=== PATIENT | female | born 1975 | race Caucasian/White ===

== ENCOUNTER 2016-09-07 23:39 | Observation (INO) | payer OTHER ==
[2016-09-08 00:07] VITALS: BP 118/60
[2016-09-08] MEDS ORDERED: PREN1TAB89 PO (00:09)
== END 2016-09-08 01:40 | disposition home or self-care (01) ==
LOC: 4S 23:39
PROVIDERS: ADMIT Obstetrics & Gynecology; ATTEND Obstetrics & Gynecology
DX: O62.9 Abnormality of forces of labor, unspecified (principal); O09.523 Supervision of elderly multigravida, third trimester; Z3A.38 38 weeks gestation of pregnancy
CPT/HCPCS: 59025; G0378 ×2

== ENCOUNTER 2016-09-23 15:36 | Inpatient (IN) | payer OTHER ==
[~2016-09-23] VITALS: Ht 168 cm; Wt 79.8 kg
[~2016-09-23 15:36] MED LIST: PREN1TAB89 PO
[2016-09-23] MEDS ORDERED: OXYTOCIN 30 UNITS/LACT RINGERS 500 ML IV ONE (15:45)
[2016-09-23] MEDS ORDERED: METOCLOPRAMIDE HCL 5 MG/ML 2 ML VIAL IVP PRN (15:45)
[2016-09-23] MEDS ORDERED: CITRIC ACID/SODIUM CITRATE 30 ML SOLUTION UDCUP PO PRN (15:45)
[2016-09-23] MEDS ORDERED: RINGERS SOLUTION,LACTATED 1,000 ML IV PRN (15:45)
[2016-09-23] MEDS ORDERED: LIDOCAINE HCL/PF 1% 30 ML VIAL INJ PRN (15:45)
[2016-09-23] MEDS ORDERED: METHYLERGONOVINE MALEATE 0.2 MG/ML VIAL IM PRN (15:45)
[2016-09-23 16:11] VITALS: BP 116/66
[2016-09-23] MEDS ORDERED: PREN1TAB89 PO (16:16)
[2016-09-23] MEDS: RINGERS SOLUTION,LACTATED 1,000 ML IV SCH ×2 (16:32→22:35)
[2016-09-23 16:43] LABS: BASOPHILS % (AUTO) 0.3 % (0.0-2.0); HEMATOCRIT 33.7 % (36-46); HEMOGLOBIN 11.4 g/dL (12.0-16.0); LYMPHOCYTES # (AUTO) 2.3 K/uL (1.0-4.8); LYMPHOCYTES % (AUTO) 24.2 % (22.0-44.0); MEAN CORPUSCULAR HGB CONC 33.7 G/dL (31.0-37.0); MEAN CORPUSCULAR VOLUME 89 fL (80-100); MONOCYTES % (AUTO) 11.1 % (2.0-9.0); NEUTROPHILS # (AUTO) 5.9 K/uL (1.8-7.7); NEUTROPHILS % (AUTO) 63.4 % (40.0-70.0); RED BLOOD CELL COUNT(AUTO) 3.79 MIL/uL (4.00-5.20); RED CELL DISTRIBUTION WIDTH 14.3 % (11.5-14.5); WHITE BLOOD COUNT (AUTO) 9.3 K/uL (4.5-11.0)
[2016-09-23] MEDS ORDERED: DINOPROSTONE 10 MG VAGINAL SUPPOSITORY VG ONE (17:15)
[2016-09-23] MEDS ORDERED: OXYGEN THERAPY IH SCH (20:00)
[2016-09-24] MEDS ORDERED: -PHARMACY NOTE- MISC ONE ×2 (05:15)
[2016-09-24] MEDS: RINGERS SOLUTION,LACTATED 1,000 ML IV SCH ×3 (07:32→19:13)
[2016-09-24] MEDS ORDERED: MISOPROSTOL 25 MCG TABLET VG SCH (08:15)
[2016-09-24] MEDS: FentaNYL CITRATE-PF 100 MCG/2 ML VIAL IVP PRN ×4 (10:36→12:47)
[2016-09-24] MEDS ORDERED: OXYTOCIN 30 UNITS/LACT RINGERS 500 ML IV PRN (13:14)
[2016-09-24] MEDS ORDERED: FentaNYL/BUPIV 0.125%/NS/PF 200 ML ED ONE (14:10)
[2016-09-24] MEDS ORDERED: LIDOCAINE HCL/PF 2% 5 ML VIAL ONE ×2 (14:10→19:59)
[2016-09-24] MEDS ORDERED: BUPIVACAINE HCL/PF 0.25% 10 ML VIAL ONE (14:10)
[2016-09-24] MEDS ORDERED: FentaNYL/BUPIV 0.125%/NS/PF 200 ML ED PRN (14:49)
[2016-09-24] MEDS ORDERED: PROMETHAZINE HCL 12.5 MG in SODIUM CHLORIDE 0.9% 50 ML IV PRN (15:00)
[2016-09-24] MEDS ORDERED: ONDANSETRON HCL 4 MG/2 ML VIAL IVP PRN (15:00)
[2016-09-24] MEDS ORDERED: NALBUPHINE HCL 10 MG/ML VIAL IVP PRN ×2 (15:00)
[2016-09-24] MEDS ORDERED: DiphenhydrAMINE HCL 50 MG/ML VIAL IVP PRN (15:00)
[2016-09-24] MEDS ORDERED: BUPIVACAINE HCL/PF 0.5% 10 ML VIAL ONE (19:59)
[2016-09-24] MEDS ORDERED: FentaNYL CITRATE-PF 100 MCG/2 ML VIAL ONE (19:59)
[2016-09-24] MEDS ORDERED: ACETAMINOPHEN 325 MG TABLET PO ONE (22:45)
[2016-09-24] MEDS: CeFAZolin 2 GM/DEXTROSE 50 ML IV SCH (23:07)
[2016-09-25] MEDS: RINGERS SOLUTION,LACTATED 1,000 ML IV SCH ×2 (03:13→08:26)
[2016-09-25] MEDS ORDERED: FentaNYL/BUPIV 0.125%/NS/PF 200 ML ED ONE (04:55)
[2016-09-25] MEDS: CeFAZolin 2 GM/DEXTROSE 50 ML IV SCH (06:07)
[2016-09-25] MEDS ORDERED: FentaNYL CITRATE-PF 100 MCG/2 ML VIAL ONE (07:31)
[2016-09-25] MEDS ORDERED: BUPIVACAINE HCL/PF 0.5% 10 ML VIAL ONE (07:32)
[2016-09-25] MEDS ORDERED: LIDOCAINE HCL/PF 2% 5 ML VIAL ONE (07:32)
[2016-09-25] MEDS: FentaNYL CITRATE-PF 100 MCG/2 ML VIAL IVP PRN ×2 (10:40→10:42)
[2016-09-25] MEDS ORDERED: LANOLIN 7 GM OINTMENT TP PRN (11:45)
[2016-09-25] MEDS ORDERED: ACETAMINOPHEN/CODEINE 300-30 MG TABLET PO PRN ×2 (11:45)
[2016-09-25] MEDS ORDERED: BENZOCAINE 20%/MENTHOL 56 GM SPRAY CANISTER TP PRN (11:45)
[2016-09-25] MEDS ORDERED: GLYCERIN/WITCH HAZEL LEAF 40 PADS JAR TP PRN (11:45)
[2016-09-25] MEDS: IBUPROFEN 600 MG TABLET PO PRN (19:55)
[2016-09-25] MEDS: MAGNESIUM HYDROXIDE SUSPENSION 30 ML UDCUP PO SCH (19:56)
[2016-09-25] MEDS: SENNA/DOCUSATE SODIUM 187-50 MG TABLET PO SCH (19:56)
[2016-09-26] MEDS: IBUPROFEN 600 MG TABLET PO PRN (05:39)
[2016-09-26] MEDS: MAGNESIUM HYDROXIDE SUSPENSION 30 ML UDCUP PO SCH (09:02)
[2016-09-26] MEDS: SENNA/DOCUSATE SODIUM 187-50 MG TABLET PO SCH (09:03)
[2016-09-26] MEDS ORDERED: IBUP-2070 PO (09:45)
[2016-09-26] MEDS ORDERED: DSS100 PO (09:45)
[2016-09-26] MEDS ORDERED: FERR-89 PO (09:46)
== END 2016-09-26 11:10 | disposition home or self-care (01) | DRG 775 ==
LOC: 4S 15:36 → OBSVTOIN 15:36
PROVIDERS: ADMIT Obstetrics & Gynecology; ATTEND Obstetrics & Gynecology
PROC: 10D07Z6 Extraction of Products of Conception, Vacuum, Via Natural or Artificial Opening (ICD-10-PCS; principal; 2016-09-25)
PROC: 0KQM0ZZ Repair Perineum Muscle, Open Approach (ICD-10-PCS; 2016-09-25)
PROC: 10907ZC Drainage of Amniotic Fluid, Therapeutic from Products of Conception, Via Natural or Artificial Opening (ICD-10-PCS; 2016-09-25)
PROC: 0W8NXZZ Division of Female Perineum, External Approach (ICD-10-PCS; 2016-09-25)
PROC: 3E0P7GC Introduction of Other Therapeutic Substance into Female Reproductive, Via Natural or Artificial Opening (ICD-10-PCS; 2016-09-25)
PROC: 3E0S3CZ (ICD-10-PCS; 2016-09-25)
PROC: 00HU33Z Insertion of Infusion Device into Spinal Canal, Percutaneous Approach (ICD-10-PCS; 2016-09-25)
DX: O69.81X0 Labor and delivery complicated by cord around neck, without compression, not applicable or unspecified (principal); O09.513 Supervision of elderly primigravida, third trimester; O70.1 Second degree perineal laceration during delivery; Z37.0 Single live birth; Z3A.41 41 weeks gestation of pregnancy
CPT/HCPCS: 86850; 86900; 86901; J0690; J1200; J2590; J2765; J3010; J3490; J7120